=== PATIENT | female | born 1960 | race Hispanic/Latino ===

== ENCOUNTER 2019-10-20 01:26 | Inpatient (IN) | payer OTHER, SELFPAY ==
[2019-10-20] MEDS ORDERED: ACETAMINOPHEN EXTRA STRENGTH 500 MG TABLET ONE (03:38)
[2019-10-20] MEDS ORDERED: BENZONATATE 100 MG CAPSULE PO ONE (03:38)
[2019-10-20] MEDS ORDERED: ONDANSETRON HCL 4 MG/2 ML VIAL IV PRN (05:45)
[2019-10-20] MEDS ORDERED: ERGOCALCIFEROL (VITAMIN D2) 50,000 UNIT CAPSULE PO ONE (05:45)
[2019-10-20] MEDS ORDERED: LACTULOSE 20 GM/30 ML UDCUP PO PRN (05:45)
[2019-10-20] MEDS ORDERED: ACETAMINOPHEN 325 MG TAB PO PRN ×2 (05:45)
[2019-10-20] MEDS ORDERED: HYDRALAZINE HCL 20 MG/ML VIAL IV PRN (05:45)
[2019-10-20] MEDS ORDERED: CEFTRIAXONE SODIUM 1 GM IVP SCH (06:00)
[2019-10-20] MEDS ORDERED: METHYLPREDNISOLONE SOD SUCC 125MG/2ML VIAL ONE (06:04)
[2019-10-20] MEDS ORDERED: CEFTRIAXONE SODIUM 1 GM ONE ×2 (06:05→11:19)
[2019-10-20] MEDS ORDERED: ALBUTEROL INHALER 90MCG/INH IH ONE (06:06)
[2019-10-20] MEDS ORDERED: ERGOCALCIFEROL (VITAMIN D2) 50,000 UNIT CAPSULE ONE (07:28)
[2019-10-20] MEDS ORDERED: ASCORBIC ACID 500 MG TAB ONE (07:28)
[2019-10-20] MEDS ORDERED: ZINC SULFATE 220 CAPSULE ONE (07:28)
[2019-10-20] MEDS ORDERED: DOXYCYCLINE HYCLATE 100 MG TABLET PO ONE ×2 (07:28→21:05)
[2019-10-20] MEDS ORDERED: ENOXAPARIN SODIUM 40 MG/0.4 ML SYRINGE SQ ONE (07:29)
[2019-10-20] MEDS ORDERED: FAMOTIDINE/PF 20 MG/2 ML VIAL IV ONE (08:41)
[2019-10-20] MEDS ORDERED: ZINC SULFATE 220 CAPSULE PO SCH (09:00)
[2019-10-20] MEDS ORDERED: DOXYCYCLINE HYCLATE 100 MG TABLET PO SCH (09:00)
[2019-10-20] MEDS ORDERED: ASCORBIC ACID 500 MG TAB PO SCH (09:00)
[2019-10-20] MEDS ORDERED: ENOXAPARIN SODIUM 40 MG/0.4 ML SYRINGE SQ SCH (09:00)
[2019-10-20] MEDS ORDERED: FAMOTIDINE 20MG TAB 20 MG TAB PO SCH (09:00)
[2019-10-20] MEDS ORDERED: METHYLPREDNISOLONE SOD SUCC 40MG/ML 1ML IVP SCH (09:00)
[2019-10-20] MEDS ORDERED: METHYLPREDNISOLONE SOD SUCC 40MG/ML 1ML ONE ×3 (11:18→21:04)
--- NOTE | 2019-10-20 16:21 | NUR ---
SPOKE TO DAUGHTER JOSE A ON THE PHONE FOR DC PLANNING STATES THAT PATIENT LIVES WITH SPOUSE AND DAUGHTER, IS INDEPENDENT/ACTIVE/ DRIVES/ NO DME, WORKS "AT TIMES" IS RESIDENT X > 8 YEARS AND HAS SOCIAL #, BUT CANNOT FIND, WILL ASK HELP ROBERT TO FOLLOW UP FOR POSSIBLE BENEFITS. HOME SAFE/ACCESSIBLE, DAUGHTER TO PROVIDE TRANSPORT Addendum: 10/20/19 at 1623 by DEB HINSON RN CM Amended: Links added.
[2019-10-20 19:45] VITALS: BP 155/90; PULSE 82; RESP 20; TEMP 98.6
[2019-10-20] MEDS: ALBUTEROL INHALER 90MCG/INH IH SCH (21:15)
[2019-10-20] MEDS ORDERED: GUAIFENESIN-DM 200/20 MG 10 ML ONE (22:43)
[2019-10-20] MEDS ORDERED: LOSARTAN 50 MG TABLET ONE (22:43)
[2019-10-20] MEDS ORDERED: GUAIFENESIN-DM 200/20 MG 10 ML PO PRN (22:45)
[2019-10-20] MEDS ORDERED: LOSARTAN 50 MG TABLET PO SCH (22:45)
[2019-10-20 23:54] VITALS: BP 140/93; PULSE 85; RESP 20; TEMP 98.7
[2019-10-21] MEDS: ALBUTEROL INHALER 90MCG/INH IH SCH (01:23)
[2019-10-21 04:00] VITALS: BP 113/71; PULSE 84; RESP 18; TEMP 98.2
[2019-10-21] MEDS ORDERED: CEFTRIAXONE SODIUM 1 GM IVP SCH (09:00)
[2019-10-21] MEDS ORDERED: DOXYCYCLINE HYCLATE 100 MG TABLET PO ONE ×2 (09:48→21:51)
[2019-10-21] MEDS ORDERED: ASCORBIC ACID 500 MG TAB ONE (09:48)
[2019-10-21] MEDS ORDERED: METHYLPREDNISOLONE SOD SUCC 125MG/2ML VIAL ONE (09:48)
[2019-10-21] MEDS ORDERED: ZINC SULFATE 220 CAPSULE ONE (09:48)
[2019-10-21] MEDS ORDERED: FAMOTIDINE/PF 20 MG/2 ML VIAL IV ONE ×2 (09:49→21:51)
[2019-10-21] MEDS ORDERED: LOSARTAN 50 MG TABLET ONE (09:49)
[2019-10-21] MEDS ORDERED: ENOXAPARIN SODIUM 40 MG/0.4 ML SYRINGE SQ ONE (09:49)
[2019-10-21] MEDS ORDERED: CEFTRIAXONE SODIUM 1 GM ONE ×2 (09:49→21:52)
[2019-10-21] MEDS ORDERED: ALBUTEROL INHALER 90MCG/INH IH ONE (10:50)
[2019-10-21] MEDS ORDERED: GUAIFENESIN-DM 200/20 MG 10 ML ONE ×2 (15:16→21:50)
[2019-10-21] MEDS ORDERED: METHYLPREDNISOLONE SOD SUCC 40MG/ML 1ML ONE (21:50)
[2019-10-22] MEDS ORDERED: ZINC SULFATE 220 CAPSULE ONE (08:53)
[2019-10-22] MEDS ORDERED: METHYLPREDNISOLONE SOD SUCC 40MG/ML 1ML ONE ×2 (08:53→21:42)
[2019-10-22] MEDS ORDERED: DOXYCYCLINE HYCLATE 100 MG TABLET PO ONE ×2 (08:53→21:42)
[2019-10-22] MEDS ORDERED: ASCORBIC ACID 500 MG TAB ONE (08:53)
[2019-10-22] MEDS ORDERED: ENOXAPARIN SODIUM 40 MG/0.4 ML SYRINGE SQ ONE (08:54)
[2019-10-22] MEDS ORDERED: LOSARTAN 50 MG TABLET ONE (08:54)
[2019-10-22] MEDS ORDERED: CEFTRIAXONE SODIUM 1 GM ONE ×2 (08:54→21:42)
[2019-10-22] MEDS ORDERED: FAMOTIDINE/PF 20 MG/2 ML VIAL IV ONE ×2 (08:55→21:43)
== END 2019-10-23 01:08 | disposition home or self-care (01) | DRG 177 ==
LOC: EDH 01:26 → EDHIP 01:27
PROVIDERS: ADMIT Hospitalist; ATTEND Hospitalist
DX: U07.1 COVID-19 (principal); J96.01 Acute respiratory failure with hypoxia; J12.89 Other viral pneumonia; I10 Essential (primary) hypertension; M06.9 Rheumatoid arthritis, unspecified; Z90.49 Acquired absence of other specified parts of digestive tract; Z90.710 Acquired absence of both cervix and uterus